=== PATIENT | male | born 1990 ===

== ENCOUNTER 2017-03-12 19:55 | Emergency (ER) | payer OTHER ==
[~2017-03-12] VITALS: Ht 188 cm; Wt 115.0 kg
[2017-03-12 20:02] VITALS: Ht 188 cm; Wt 115.0 kg
[2017-03-12] MEDS ORDERED: SODIUM CHLORIDE 0.9% 1000ML 1,000 ML IV ONE ×3 (20:45→22:45)
[2017-03-12] MEDS ORDERED: KETOROLAC TROMETHAMINE 30 MG/ML VIAL IV STA (21:02)
--- NOTE | 2017-03-12 21:18 | EMERGENCY ROOM VISIT NOTE ---
History First contact with patient: 20:33 Chief Complaint: ILLNESS Stated Complaint: FEVER,VOMITING,SHIVERING X 3 DAYS History of Present Illness The patient is a 26 year old male who presents to the Emergency Room with complaints of fever, sore throat and vomiting for the last 3 days. The patient also has had intermittent headaches and body aches. He did not take his temperature at home. He is able to swallow. He has been sticking to clear liquids. He denies any abdominal pain. No neck pain or changes in vision. He has been traveling over the last several weeks. He traveled to [facility] and [place]. He did not take any malaria prophylaxis. He denies any known sick contacts. He has tried ibuprofen with minimal relief of his symptoms. Review of Systems 10 system review performed and negative unless noted in HPI or below Past Medical/Surgical History Otherwise healthy Social History Smoking Status: Never Smoker Alcohol Use: none Occupation Status: other (student) Current/Historical Medications Scheduled Amoxicillin & Pot Clavulanate (Augmentin 875-125 mg), 1 TAB PO BID Physical Exam Vital Signs Date Time Temp Pulse Resp B/P (MAP) Pulse Ox O2 Delivery O2 Flow Rate FiO2 03/12/17 23:12 91 99 Room Air 03/12/17 21:59 37.4 97 20 120/87 98 Room Air 03/12/17 21:18 105 03/12/17 21:15 107 20 139/74 97 Room Air 03/12/17 20:02 37.7 122 16 146/97 98 Room Air Physical Exam VITALS: Vitals are noted on the nurse's note and reviewed by myself. Vital signs stable. GENERAL: 26-year-old male, in no acute distress, nondiaphoretic, well-developed well-nourished. SKIN: The skin was without rashes, erythema, edema, or bruising. HEAD: Normocephalic atraumatic. EARS: External auditory canals clear, tympanic membranes pearly everett without erythema or effusion bilaterally. EYES: Pupils equal round and reactive to light and accommodation. Conjunctivae without injection, sclerae without icterus. Extraocular movements intact. MOUTH: Mucous membranes slightly dry. Tonsils are erythematous and edematous with white plaque right greater than left. No swelling of the soft palate. No hot potato voice. He is able to open his mouth. No trismus.. Uvula midline. Airway patent. Tongue does not deviate. NECK: Lymphadenopathy noted in the anterior cervical chain. No nuchal rigidity. Full flexion and extension of the neck without pain.. HEART: Tachycardic, regular rhythm without murmurs gallops or rubs. LUNGS: Clear to auscultation bilaterally without wheezes, rales or rhonchi. No accessory muscle use. ABDOMEN: Positive bowel sounds x 4.Soft, nontender, without organomegaly. No guarding or rebound tenderness. MUSCULOSKELETAL: No muscle atrophy, erythema, or edema noted. Strength 5/5 throughout. NEURO: Patient was alert and oriented to person place and time. Normal sensation to touch. No focal neurological deficits. Medical Decision & Procedures ER Provider Diagnostic Interpretation: CHEST 2 VIEWS ROUTINE CLINICAL HISTORY: cough, fever COMPARISON STUDY: No previous studies for comparison. FINDINGS: The bones soft tissues and hemidiaphragms are normal. The cardiomediastinal silhouette is normal. The lungs are clear. The pulmonary vasculature is normal. IMPRESSION: Negative chest. The above report was generated using voice recognition software. It may contain grammatical, syntax or spelling errors. Electronically signed by: Cole Chacon M.D. 03/12/2017 9:49 PM Dictated Date/Time: 03/12/2017 9:49 PM The status of this report is Signed. Draft = Not yet reviewed or approved by Radiologist. Signed = Reviewed and approved by Radiologist. Laboratory Results 03/12/17 21:15 Red Blood Count 4.34, Mean Corpuscular Volume 87.8, Mean Corpuscular Hemoglobin 29.3, Mean Corpuscular Hemoglobin Concent 33.3, Mean Platelet Volume 9.9, Neutrophils (%) (Auto) 79.3, Lymphocytes (%) (Auto) 10.0, Monocytes (%) (Auto) 10.2, Eosinophils (%) (Auto) 0.1, Basophils (%) (Auto) 0.1, Neutrophils # (Auto ) 8.39, Lymphocytes # (Auto) 1.06, Monocytes # (Auto) 1.08, Eosinophils # (Auto ) 0.01, Basophils # (Auto) 0.01 03/12/17 21:15 Test 03/12/17 21:15 03/12/17 21:22 White Blood Count 10.58 K/uL (4.8-10.8) Red Blood Count 4.34 M/uL (4.7-6.1) Hemoglobin 12.7 g/dL (14.0-18.0) Hematocrit 38.1 % (42-52) Mean Corpuscular Volume 87.8 fL (80-100) Mean Corpuscular Hemoglobin 29.3 pg (25-34) Mean Corpuscular Hemoglobin Concent 33.3 g/dl (32-36) Platelet Count 230 K/uL (130-400) Mean Platelet Volume 9.9 fL (7.4-10.4) Neutrophils (%) (Auto) 79.3 % Lymphocytes (%) (Auto) 10.0 % Monocytes (%) (Auto) 10.2 % Eosinophils (%) (Auto) 0.1 % Basophils (%) (Auto) 0.1 % Neutrophils # (Auto) 8.39 K/uL (1.4-6.5) Lymphocytes # (Auto) 1.06 K/uL (1.2-3.4) Monocytes # (Auto) 1.08 K/uL (0.11-0.59) Eosinophils # (Auto) 0.01 K/uL (0-0.5) Basophils # (Auto) 0.01 K/uL (0-0.2) RDW Standard Deviation 43.5 fL (36.4-46.3) RDW Coefficient of Variation 13.6 % (11.5-14.5) Immature Granulocyte % (Auto) 0.3 % Immature Granulocyte # (Auto) 0.03 K/uL (0.00-0.02) Anion Gap 6.0 mmol/L (3-11) Est Creatinine Clear Calc Drug Dose 116.1 ml/min Estimated GFR () 87.3 Estimated GFR (Non- 75.3 BUN/Creatinine Ratio 9.6 (10-20) Lactic Acid Level 1.0 mmol/L (0.4-2.0) Calcium Level 8.9 mg/dl (8.5-10.1) Total Bilirubin 2.3 mg/dl (0.2-1) Aspartate Amino Transf (AST/SGOT) 46 U/L (15-37) Alanine Aminotransferase (ALT/SGPT) 71 U/L (12-78) Alkaline Phosphatase 55 U/L (45-117) Total Protein 8.0 gm/dl (6.4-8.2) Albumin 3.8 gm/dl (3.4-5.0) Globulin 4.2 gm/dl (2.5-4.0) Albumin/Globulin Ratio 0.9 (0.9-2) Lyme Disease IgG Antibody NEG (NEG) Lyme Disease IgM Antibody NEG (NEG) Urine Color ORANGE Urine Appearance CLEAR (CLEAR) Urine pH 8.5 (4.5-7.5) Urine Specific [place] 1.030 (1.000-1.030) Urine Protein NEG (NEG) Urine Glucose (UA) NEG (NEG) Urine Ketones TRACE (NEG) Urine Occult Blood NEG (NEG) Urine Nitrite NEG (NEG) Urine Bilirubin NEG (NEG) Urine Urobilinogen NEG (NEG) Urine Leukocyte Esterase TRACE (NEG) Urine WBC (Auto) 1-5 /hpf (0-5) Urine RBC (Auto) 0-4 /hpf (0-4) Urine Hyaline Casts (Auto) 1-5 /lpf (0-5) Urine Epithelial Cells (Auto) 5-10 /lpf (0-5) Urine Bacteria (Auto) NEG (NEG) Medications Administered Medications (Trade) Dose Ordered Sig/José Antonio Route Start Time Stop Time Status Last Admin Dose Admin Sodium Chloride 1,000 ml @ 999 mls/hr Q1H1M ONCE IV 03/12/17 20:45 03/12/17 21:45 DC 03/12/17 21:24 999 MLS/HR Ketorolac Tromethamine (Toradol Inj) 30 mg NOW STAT IV 03/12/17 21:02 03/12/17 21:03 DC 03/12/17 21:27 30 MG Sodium Chloride 1,000 ml @ 999 mls/hr Q1H1M ONCE IV 03/12/17 22:30 03/12/17 23:30 DC 03/12/17 22:30 999 MLS/HR Acetaminophen (Tylenol Tab) 1,000 mg NOW STAT PO 03/12/17 22:43 03/12/17 22:45 DC 03/12/17 22:43 1,000 MG ED Course Patient was seen and examined Vital signs including blood pressure were reviewed medications list was verified with patient Labs were obtained, and a saline lock was established the patient was given Toradol 30 mg IV. He was hydrated with 1 L of normal saline. He was also given 1 g of Tylenol. He was hydrated with an additional liter of fluid. I discussed the findings of his workup thus far. He voiced understanding. He was given 1 dose of Augmentin The case was discussed with Dr. Monroy and signed out to her care in addition to Alona Ramos PA-C at change of shift. Please see their dictation for further details Medical Decision Differential diagnosis: Bronchitis, pneumonia, strep pharyngitis, viral pharyngitis, influenza , malaria, mononucleosis, meningitis This patient is a 26-year-old male that presented to the emergency department with fever, sore throat, headache and vomiting. On exam, he did not have any nuchal rigidity or neck pain. I have a very low suspicion of meningitis. His tonsils were swollen, erythematous and with white exudate. His rapid strep is negative. It is possible that he has bacterial tonsillitis. I am however concerned about his travel history. There is concern for malaria. His total bilirubin is elevated with a slight elevation in addition to AST. He is mildly anemic. I could not palpate any splenomegaly or hepatomegaly on exam. A peripheral smear was sent. The patient had good symptomatic relief in the emergency department with Toradol, Tylenol and fluids. This patient was signed out to Alona Ramos PA-C, at change of shift. Please see her dictation for further details. Blood Pressure Screening Blood pressure disposition: Elevated BP felt to be situational Impression Primary Impression: Fever Additional Impression: Acute bacterial tonsillitis Departure Information Dispostion Home / Self-Care Condition FAIR Prescriptions Amoxicillin & Pot Clavulanate (Augmentin 875-125 mg) 1 Tab Tab 1 TAB PO BID for 10 Days, #20 TAB Prov: Elzbieta Hillman PA-C 03/12/17 Referrals No Doctor, Assigned (PCP) Forms WORK / SCHOOL INSTRUCTIONS, HOME CARE DOCUMENTATION FORM, IMPORTANT VISIT INFORMATION Patient Instructions My [facility] Additional Instructions You were evaluated in the emergency department tonight with sore throat, headache, fever and vomiting. It appears that your tonsils are swollen and red. It is likely that you have tonsillitis. It is important to stay well hydrated. Please increase your liquid intake over the next several days. Ibuprofen 800 mg and/or Tylenol 1000 mg every 8 hours for the next 48 hours for fever and pain. You may also alternate these medications for more effective pain relief: Ibuprofen --4 HRS--> Tylenol --4 HRS--> ibuprofen --4 HRS--> Tylenol .... Please finish the entire course of antibiotics Please follow-up with your primary physician within the next 5-7 days Return to the emergency department if you have any of the following symptoms: -Fever of 103F or greater -Persistent vomiting - Persistent diarrhea -Lethargy -Severe headache -Changes in vision -Confusion -Inability to swallow -Inability to open your mouth Problem Qualifiers
[2017-03-12 21:33] LABS: BASO % 0.1 %; BASO ABS # 0.01 K/uL (0-0.2); COMPLETE YES; EOS % 0.1 %; HEMATOCRIT 38.1 % (42-52); IG% 0.3 %; LYMPH ABS # 1.06 K/uL (1.2-3.4); MEAN CELL VOLUME 87.8 fL (80-100); MEAN CORPUSCULAR HEMOGLOBIN 29.3 pg (25-34); MEAN CORPUSCULAR HGB CONC 33.3 g/dl (32-36); MEAN PLATELET VOLUME 9.9 fL (7.4-10.4); MONO % 10.2 %; NEUT % 79.3 %; PLATELET COUNT 230 K/uL (130-400); RED BLOOD COUNT 4.34 M/uL (4.7-6.1); WHITE BLOOD COUNT 10.58 K/uL (4.8-10.8)
[2017-03-12 21:40] LABS: URINE APPEARANCE CLEAR (CLEAR); URINE BILIRUBIN NEG (NEG); URINE COLOR ORANGE; URINE NITRITE NEG (NEG); URINE PH 8.5 (4.5-7.5); UROBILINOGEN NEG (NEG)
[2017-03-12 21:45] LABS: MANUAL MICROSCOPIC REQUIRED? NO; REVIEW REQ? NO
[2017-03-12 21:46] LABS: SULFASALICYLIC ACID NEG (NEG)
[2017-03-12 21:46] LABS: BUN/CREATININE RATIO 9.6 (10-20); CALCIUM 8.9 mg/dl (8.5-10.1); CREATININE 1.3 mg/dl (0.60-1.40); POTASSIUM 3.9 mmol/L (3.5-5.1)
[2017-03-12 21:49] LABS: ALB/GLOB RATIO 0.9 (0.9-2)
--- NOTE | 2017-03-12 21:51 | DIAGNOSTIC IMAGING REPORT ---
CHEST 2 VIEWS ROUTINE CLINICAL HISTORY: cough, fever COMPARISON STUDY: No previous studies for comparison. FINDINGS: The bones soft tissues and hemidiaphragms are normal. The cardiomediastinal silhouette is normal. The lungs are clear. The pulmonary vasculature is normal. IMPRESSION: Negative chest. The above report was generated using voice recognition software. It may contain grammatical, syntax or spelling errors. Electronically signed by: Cole Chacon M.D. 03/12/2017 9:49 PM Dictated Date/Time: 03/12/2017 9:49 PM
[2017-03-12 22:23] LABS: LYME DISEASE AB IGG NEG (NEG); LYME DISEASE AB IGM NEG (NEG)
[2017-03-12] MEDS ORDERED: ACETAMINOPHEN 500 MG TAB PO STA (22:43)
[2017-03-12] MEDS ORDERED: AMOX875T PO (23:25)
[2017-03-12] MEDS ORDERED: AMOXICILLIN/CLAVULANATE TAB 875 MG TAB PO ONE (23:30)
[2017-03-13] MEDS ORDERED: DEXAMETHASONE SOD INJ 10 MG/ML VIAL IV ONE (02:00)
[2017-03-13 02:01] VITALS: BP 117/73
--- NOTE | 2017-03-13 02:04 | EMERGENCY ROOM VISIT NOTE ---
ED Visit Note Case is signed out to me from Elzbieta Hillman PA-C pending Kenny smear and reevaluation in stable condition. Briefly this is a 26-year-old male presented to the ER complaining of flulike illness for the past 3 days who was in [place] visiting for the past month. He states he went to [place] and [place]. He's had his typhoid and yellow fever vaccines. All his vaccines are current. No sick contacts. Patient states he flew back to [facility] on Thursday and states Mondays is when he started to get sick. He did not take malaria prophylaxis. Negative strep test. Patient had an negative malaria screen. Negative flu screen. He is well-appearing. He was neurovascularly and neurologically intact. He had no signs of meningitis or airway compromise. He was given a dose of steroids. He is advised follow-up family care in a few days or here in the ER sooner for high fevers, lethargy, neck stiffness, worsening signs or symptoms or as needed. #1 fever #2 tonsillitis Acetaminophen(Tylenol) may be used for fever or pain. Use 1000mg every six hours as needed. Avoid using more than 3000mg in a 24 hour period. (AND/OR) Ibuprofen(Motrin, Advil) may be used for fever or pain. Use 600mg every six hours as needed. Take with food. Avoid using more than 2400mg in a 24 hour period. Do not use 2400mg per day for more than three consecutive days without physician direction. Prolonged inappropriate use can lead to stomach upset or ulcers. Afrin nasal spray: 2-3 sprays to each nostril twice daily as needed for congestion. Do not use for more than 3-4 days because it can lead to worsening rebound congestion. Pseudoephedrine(Sudaphed): 30-60mg every 6 hours as needed for nasal congestion. Do not take this with other stimulant products or supplements. Rest and drink plenty of fluids. Controlling your fever with Tylenol and Ibuprofen as above will make you feel better. Wash your hands after nose blowing, sneezing, or coughing. Most germs are spread through contact, therefore improper hygiene may result in your close contacts and loved ones becoming ill just like you. Continue current medications. Return to the ER for severe headache, neck stiffness, chest pain, difficulty breathing, fevers, vomiting, worsening of your condition, or as needed. Follow up with your primary physician this week for a recheck of your current condition. Current/Historical Medications Scheduled Amoxicillin & Pot Clavulanate (Augmentin 875-125 mg), 1 TAB PO BID Allergies Coded Allergies: No Known Allergies (Unverified , 03/12/17) Vital Signs Date Time Temp Pulse Resp B/P (MAP) Pulse Ox O2 Delivery O2 Flow Rate FiO2 03/13/17 01:19 77 03/13/17 00:55 78 22 99 03/13/17 00:40 82 29 98 03/13/17 00:25 92 16 99 03/13/17 00:10 86 22 98 03/12/17 23:55 89 29 98 03/12/17 23:40 99 18 03/12/17 23:35 89 24 98 03/12/17 23:20 93 24 03/12/17 23:13 122/79 03/12/17 23:12 91 99 Room Air 03/12/17 23:05 92 19 03/12/17 21:59 37.4 97 20 120/87 98 Room Air 03/12/17 21:18 105 03/12/17 21:15 107 20 139/74 97 Room Air 03/12/17 20:02 37.7 122 16 146/97 98 Room Air Laboratory Results 03/12/17 21:15 Red Blood Count 4.34, Mean Corpuscular Volume 87.8, Mean Corpuscular Hemoglobin 29.3, Mean Corpuscular Hemoglobin Concent 33.3, Mean Platelet Volume 9.9, Neutrophils (%) (Auto) 79.3, Lymphocytes (%) (Auto) 10.0, Monocytes (%) (Auto) 10.2, Eosinophils (%) (Auto) 0.1, Basophils (%) (Auto) 0.1, Neutrophils # (Auto ) 8.39, Lymphocytes # (Auto) 1.06, Monocytes # (Auto) 1.08, Eosinophils # (Auto ) 0.01, Basophils # (Auto) 0.01 03/12/17 21:15 Test 03/12/17 00:00 03/12/17 21:15 03/12/17 21:22 03/13/17 00:30 Monoscreen NEG (NEG) White Blood Count 10.58 K/uL (4.8-10.8) Red Blood Count 4.34 M/uL (4.7-6.1) Hemoglobin 12.7 g/dL (14.0-18.0) Hematocrit 38.1 % (42-52) Mean Corpuscular Volume 87.8 fL (80-100) Mean Corpuscular Hemoglobin 29.3 pg (25-34) Mean Corpuscular Hemoglobin Concent 33.3 g/dl (32-36) Platelet Count 230 K/uL (130-400) Mean Platelet Volume 9.9 fL (7.4-10.4) Neutrophils (%) (Auto) 79.3 % Lymphocytes (%) (Auto) 10.0 % Monocytes (%) (Auto) 10.2 % Eosinophils (%) (Auto) 0.1 % Basophils (%) (Auto) 0.1 % Neutrophils # (Auto) 8.39 K/uL (1.4-6.5) Lymphocytes # (Auto) 1.06 K/uL (1.2-3.4) Monocytes # (Auto) 1.08 K/uL (0.11-0.59) Eosinophils # (Auto) 0.01 K/uL (0-0.5) Basophils # (Auto) 0.01 K/uL (0-0.2) RDW Standard Deviation 43.5 fL (36.4-46.3) RDW Coefficient of Variation 13.6 % (11.5-14.5) Immature Granulocyte % (Auto) 0.3 % Immature Granulocyte # (Auto) 0.03 K/uL (0.00-0.02) Anion Gap 6.0 mmol/L (3-11) Est Creatinine Clear Calc Drug Dose 116.1 ml/min Estimated GFR () 87.3 Estimated GFR (Non- 75.3 BUN/Creatinine Ratio 9.6 (10-20) Lactic Acid Level 1.0 mmol/L (0.4-2.0) Calcium Level 8.9 mg/dl (8.5-10.1) Total Bilirubin 2.3 mg/dl (0.2-1) Aspartate Amino Transf (AST/SGOT) 46 U/L (15-37) Alanine Aminotransferase (ALT/SGPT) 71 U/L (12-78) Alkaline Phosphatase 55 U/L (45-117) Total Protein 8.0 gm/dl (6.4-8.2) Albumin 3.8 gm/dl (3.4-5.0) Globulin 4.2 gm/dl (2.5-4.0) Albumin/Globulin Ratio 0.9 (0.9-2) Lyme Disease IgG Antibody NEG (NEG) Lyme Disease IgM Antibody NEG (NEG) Urine Color ORANGE Urine Appearance CLEAR (CLEAR) Urine pH 8.5 (4.5-7.5) Urine Specific [place] 1.030 (1.000-1.030) Urine Protein NEG (NEG) Urine Glucose (UA) NEG (NEG) Urine Ketones TRACE (NEG) Urine Occult Blood NEG (NEG) Urine Nitrite NEG (NEG) Urine Bilirubin NEG (NEG) Urine Urobilinogen NEG (NEG) Urine Leukocyte Esterase TRACE (NEG) Urine WBC (Auto) 1-5 /hpf (0-5) Urine RBC (Auto) 0-4 /hpf (0-4) Urine Hyaline Casts (Auto) 1-5 /lpf (0-5) Urine Epithelial Cells (Auto) 5-10 /lpf (0-5) Urine Bacteria (Auto) NEG (NEG) Influenza Type A Antigen Neg for Influ A (NEG) Influenza Type B Antigen Neg for Influ B (NEG) Medications Administered Medications (Trade) Dose Ordered Sig/José Antonio Route Start Time Stop Time Status Last Admin Dose Admin Sodium Chloride 1,000 ml @ 999 mls/hr Q1H1M ONCE IV 03/12/17 20:45 03/12/17 21:45 DC 03/12/17 21:24 999 MLS/HR Ketorolac Tromethamine (Toradol Inj) 30 mg NOW STAT IV 03/12/17 21:02 03/12/17 21:03 DC 03/12/17 21:27 30 MG Sodium Chloride 1,000 ml @ 999 mls/hr Q1H1M ONCE IV 03/12/17 22:30 03/12/17 23:30 DC 03/12/17 22:30 999 MLS/HR Acetaminophen (Tylenol Tab) 1,000 mg NOW STAT PO 03/12/17 22:43 03/12/17 22:45 DC 03/12/17 22:43 1,000 MG Amoxicillin/ Clavulanate Potassium (Augmentin Tab) 875 mg NOW ONCE PO 03/12/17 23:30 03/12/17 23:31 DC 03/12/17 23:42 875 MG Departure Information Impression Primary Impression: Fever Additional Impression: Acute bacterial tonsillitis Dispostion Home / Self-Care Condition FAIR Prescriptions Amoxicillin & Pot Clavulanate (Augmentin 875-125 mg) 1 Tab Tab 1 TAB PO BID for 10 Days, #20 TAB Prov: Elzbieta Hillman PA-C 03/12/17 Referrals No Doctor, Assigned (PCP) Forms WORK / SCHOOL INSTRUCTIONS, HOME CARE DOCUMENTATION FORM, IMPORTANT VISIT INFORMATION Patient Instructions My [facility] Additional Instructions You were evaluated in the emergency department tonight with sore throat, headache, fever and vomiting. It appears that your tonsils are swollen and red. It is likely that you have tonsillitis. It is important to stay well hydrated. Please increase your liquid intake over the next several days. Ibuprofen 800 mg and/or Tylenol 1000 mg every 8 hours for the next 48 hours for fever and pain. You may also alternate these medications for more effective pain relief: Ibuprofen --4 HRS--> Tylenol --4 HRS--> ibuprofen --4 HRS--> Tylenol .... Please finish the entire course of antibiotics Please follow-up with your primary physician within the next 5-7 days Return to the emergency department if you have any of the following symptoms: -Fever of 103F or greater -Persistent vomiting - Persistent diarrhea -Lethargy -Severe headache -Changes in vision -Confusion -Inability to swallow -Inability to open your mouth Problem Qualifiers
[2017-03-13 02:05] VITALS: TEMP 36.7
[2017-03-13 02:15] VITALS: PULSE 79; O2SAT 99
[2017-03-13 02:44] LABS: INFLUENZA A PCR Neg for Influ A (NEG); INFLUENZA B PCR Neg for Influ B (NEG)
--- NOTE | 2017-03-16 11:15 | Pharmacy Progress Note ---
ED Pharmacist Culture FollowUp Date of Service: Mar 16, 2017. Patient's back-up Grp-A strep culture is growing Grp-A step. He was discharged on Augmentin 875mg PO BID x 10 days which will cover this organism. No additional action required.
[2017-03-17 12:39] LABS: EBV EARLY ANTIGEN AB <9.00 U/ML
== END 2017-03-13 02:20 | disposition home or self-care (01) ==
LOC: C.EDB 19:57
DX: J03.80 Acute tonsillitis due to other specified organisms (principal); B96.89 Other specified bacterial agents as the cause of diseases classified elsewhere